=== PATIENT | female | born 1965 | race Caucasian/White ===

== ENCOUNTER → 2016-06-02 | Outpatient (CLI) | payer OTHER ==
--- NOTE | 2016-06-02 16:37 | MAMMOGRAPHY REPORT ---
BILATERAL DIGITAL SCREENING MAMMOGRAM TOMOSYNTHESIS WITH CAD: 06/02/2016 CLINICAL HISTORY: Routine screening. Patient has no complaints. TECHNIQUE: Breast tomosynthesis in addition to standard 2D mammography was performed. Current study was also evaluated with a Computer Aided Detection (CAD) system. COMPARISON: Comparison is made to exams dated: 12/17/2012 mammogram, 05/06/2011 mammogram, 05/06/2011 ultrasound, 04/24/2011 mammogram, 04/18/2010 mammogram, and 04/18/2010 ultrasound - [facility]. BREAST COMPOSITION: The tissue of both breasts is heterogeneously dense, which may obscure small ma sses. FINDINGS: There is an asymmetry in the medial right breast that appears very similar to the 011, 04/24/2011 and 12/17/2012 mammograms, suggesting benignity. There are a few stable benign-appe aring calcifications in the breasts. No suspicious mass, architectural distortion or cluster of new, suspicious microcalcifications is se en. IMPRESSION: ACR BI-RADS CATEGORY 2: BENIGN There is no mammographic evidence of malignancy. A 1 year screening mammogram is recommended. The p atient will receive written notification of the results. Approximately 10% of breast cancers are not detected with mammography. A negative mammographic repor t should not delay biopsy if a clinically suggestive mass is present. Destini Magana M.D. ay/:06/02/2016 16:31:11 Bulb Grower: Beulah Hagen, [facility] letter sent: Normal 1/2 BI-RADS Code: ACR BI-RADS Category 2: Benign
== END | disposition home or self-care (01) ==
LOC: C.MAMM 07:48
PROVIDERS: ATTEND Obstetrics & Gynecology
DX: Z12.31 Encounter for screening mammogram for malignant neoplasm of breast (principal)

== ENCOUNTER → 2016-08-08 | Outpatient (CLI) | payer OTHER | END | disposition home or self-care (01) | LOC: C.PAPS 07:47 | PROVIDERS: ATTEND Obstetrics & Gynecology | DX: Z01.411 Encounter for gynecological examination (general) (routine) with abnormal findings (principal); R87.610 Atypical squamous cells of undetermined significance on cytologic smear of cervix (ASC-US) ==

== ENCOUNTER → 2017-10-06 | Outpatient (CLI) | payer OTHER | END | disposition home or self-care (01) | LOC: C.PAPS 13:23 | PROVIDERS: ATTEND Obstetrics & Gynecology | DX: Z01.411 Encounter for gynecological examination (general) (routine) with abnormal findings (principal); R87.610 Atypical squamous cells of undetermined significance on cytologic smear of cervix (ASC-US) ==

== ENCOUNTER 2022-06-02 17:37 | Inpatient (IN) ==
--- NOTE | 2022-06-02 17:53 | ED Triage Note ---
Date of Service June 02, 2022 History of Present Illness This patient was briefly evaluated while in triage. An abbreviated physical exam was performed. This patient is a 56-year-old Female who presents to the ED for evaluation of 2 days of R flank pain, urinary symptoms, blood in urine, vomiting. Fever up to 101. No history of stones. Labs ordered through PCP today demonstrate WBC of 17, elevated creatinine 1.8. No URI symptoms. Physical Exam CONSTITUTIONAL: in no acute pain or distress, resting comfortably SKIN: pink, warm, dry CARDIAC: tachycardic rate and regular rhythm RESPIRATORY: in no respiratory distress, lungs clear to auscultation ABDOMEN: minimal R sided tenderness. R flank pain. Initial orders for labs and / or imaging were placed and patient was placed in the waiting area until a bed is available. Please see further documentation for the full ED course.
[2022-06-02] MEDS ORDERED: ONDANSETRON INJ 2 MG/ML 2 ML VIAL IV STA ×2 (18:15→22:46)
[2022-06-02] MEDS ORDERED: ONDANSETRON INJ 2 MG/ML 2 ML VIAL ONE (18:16)
[2022-06-02 18:36] LABS: Basophils # (auto) 0.03 K/uL (0-0.2); Basophils % (auto) 0.2 %; Eosinophils # (auto) 0.03 K/uL (0-0.50); Eosinophils % (auto) 0.2 %; Hematocrit (blood only) 39.4 % (37.0-47.0); Hemoglobin 13.1 g/dl (12.0-16.0); Immature Granulocytes % (auto) 0.5 %; Lymphocytes # (auto) 1.24 K/uL (1.2-3.4); Lymphocytes % (auto) 6.5 %; Mean Corpuscular Hemoglobin 27.4 pg (25.0-34.0); Mean Corpuscular Hgb Conc 33.2 g/dL (32.0-36.0); Mean Corpuscular Volume 82.4 fL (80.0-100.0); Mean Platelet Volume 10.5 fL (9.4-12.4); Monocytes # (auto) 0.92 K/uL (0.11-0.59); Monocytes % (auto) 4.8 %; Neutrophils # (auto) 16.67 K/uL (1.40-6.50); Neutrophils % (auto) 87.8 %; Platelet Count 241 K/uL (130-400); RDW Coefficient of Variation 14.5 % (11.5-14.5); RDW Standard Deviation 43.9 fL (36.4-46.3); Red Blood Count 4.78 M/uL (4.20-5.40); White Blood Count 18.99 K/ul (4.8-10.8)
[2022-06-02 18:50] LABS: Albumin Globulin Ratio 0.9 (0.9-2); BUN Creatinine Ratio 16.3 (10-20); Bilirubin,Total 0.9 mg/dl (0.2-1.0); Calcium 9.5 mg/dl (8.5-10.1); Est GFR (African American) 32.3 ml/min; Est GFR (Non-African American) 27.9 ml/min; Globulin 4.4 gm/dl (2.5-4.0); Potassium 3.4 mmol/L (3.5-5.1); Total Protein 8.4 gm/dl (6.0-8.3)
[2022-06-02] MEDS ORDERED: SODIUM CHLORIDE 0.9% 1000ML 1,000 ML IV ONE (20:00)
--- NOTE | 2022-06-02 20:56 | Emergency Department Note ---
History of Present Illness General Chief Complaint: Flank Pain Stated Complaint: VOMIT,NAUSEA,BLOOD IN URINE,FEVER,ABNORMAL LABS Time Seen by Provider: 06/02/22 19:48 History of Present Illness Provider Complaint: flank pain Onset (ago): 3 day(s) Pain Consistency: intermittent Location: R flank Radiation: RLQ Severity: moderate Quality: + stabbing, + aching, + sharp and + dull Relieved By: + nothing Exacerbated By: + nothing Context: + history of similar episodes (Recently placed on Augmentin); no foreign travel, no possible food poisoning, no sick contacts, no recent antibiotic use, no recent surgery/procedure or no recent injury Associated Symptoms: + nausea, + vomiting, + fever (Tmax 101), + chills, + dysuria and + hematuria; no hematemesis, no hematochezia, no melena, no headache, no chest pain and no breathing difficulty Home Medications Medication Instructions Recorded Confirmed Type hydrochlorothiazide 25 mg tablet 25 mg PO DAILY 04/23/20 11/23/20 History Allergies Allergy/AdvReac Type Severity Reaction Status Date / Time Sulfa (Sulfonamide Allergy Verified 11/23/20 09:58 Antibiotics) Past Med/Surg History Medical History Encounter for screening for malignant neoplasm of colon Encounter for screening for malignant neoplasm of rectum Hypertension Surgical History H/O wrist surgery Family History Mother Breast cancer Hypertension Father Hypertension Denies family history of Ovarian cancer Prostate cancer Myocardial infarction Colorectal cancer Social History Smoking Status: Never smoker Second Hand Exposure: Yes; Hx Alcohol Use: Yes Hx Substance Use: No Visual Impairment: No Limitations Hearing Ability: Normal Proposal Engineer Required: No Beliefs That Will Affect Care: None marital status: Current Living Situation: Spouse current occupational status: employed current occupation: Self Employeed How many Children do You have: 2 How many Children do You have Comment: 1 boy 1 girl Feels Safe at Home: Yes Childhood Exposure to Second-Hand Smoke: Yes during the past year weight has: remained stable Dental Care, Regularly: Yes Physical Activity Frequency: 5-6 Times per Week Seatbelt Use: always Sunscreen Use: Yes Physical Exam Vital Signs: Vital Signs - 24 hr 06/02/22 17:38 06/02/22 20:00 06/02/22 20:15 Temperature 36.8 C Temperature Source Temporal Artery Sc an Pulse Rate 114 H 113 H Pulse Rate from Sp O2 Sensor 113 H Respiratory Rate 20 22 Respiratory Effort / Characteristics Non-Labored Sponta neous Respiratory Depth Normal Blood Pressure 172/94 H Blood Pressure Era n 120 Pulse Oximetry 99 98 97 Oxygen Delivery Me thod Room Air Room Air Sepsis Recent Feve r Within 48 Hours No Sepsis New/Unexpla ined Change in Men ayan Status No Sepsis Action Take n by Nursing No Action Required 06/02/22 20:30 06/02/22 20:30 06/02/22 21:00 Temperature Temperature Source Pulse Rate 109 H 109 H Pulse Rate from Sp O2 Sensor 109 H Respiratory Rate 12 20 Respiratory Effort / Characteristics Respiratory Depth Blood Pressure 167/103 H Blood Pressure Era n 124 Pulse Oximetry 97 Oxygen Delivery Me thod Sepsis Recent Feve r Within 48 Hours Sepsis New/Unexpla ined Change in Men ayan Status Sepsis Action Take n by Nursing 06/02/22 21:30 06/02/22 21:30 06/02/22 22:00 Temperature Temperature Source Pulse Rate 107 H Pulse Rate from Sp O2 Sensor 108 H Respiratory Rate 14 Respiratory Effort / Characteristics Respiratory Depth Blood Pressure 163/102 H 175/106 H Blood Pressure Era n 122 129 Pulse Oximetry 97 Oxygen Delivery Me thod Sepsis Recent Feve r Within 48 Hours Sepsis New/Unexpla ined Change in Men ayan Status Sepsis Action Take n by Nursing 06/02/22 22:00 Temperature Temperature Source Pulse Rate 111 H Pulse Rate from Sp O2 Sensor 111 H Respiratory Rate 8 L Respiratory Effort / Characteristics Respiratory Depth Blood Pressure Blood Pressure Era n Pulse Oximetry 99 Oxygen Delivery Me thod Sepsis Recent Feve r Within 48 Hours Sepsis New/Unexpla ined Change in Men ayan Status Sepsis Action Take n by Nursing Physical Exam: Physical Exam GENERAL: She is oriented to person, place, and time. She appears well-developed and well-nourished. She does not appear distressed. HENT: Exam performed. -Head: Normocephalic and atraumatic. NECK: Normal range of motion. Neck supple. No JVD present.No tracheal deviation and normal range of motion present. CV: Tachycardic rate, regular rhythm, normal heart sounds and intact distal pul ses. There is no peripheral edema. Palpable radial pulses bue. PULM/CHEST: Effort normal and breath sounds normal. No respiratory distress. No stridor. She has no wheezes. She has no rales. ABD: The abdomen is soft. She has no distension. There is no tenderness. There is no rebound, no guarding, no Patrick's sign and no tenderness at McBurney's point. Rovsig negative. No CVA tenderness bilaterally. NEURO: She is alert and oriented to person, place, and time. She has normal strength. GCS eye subscore is 4. GCS verbal subscore is 5. GCS motor subscore is 6. SKIN: Skin is warm and dry. She is not diaphoretic. PSYCH: She has a normal mood and affect. Behavior is normal. Judgment and thought content normal. Course Course 1947: The patient was evaluated in room C5. A complete history and physical exam was performed Cardiac monitoring: An order was placed for continuous cardiac monitoring. The monitor shows a rate of 110 with sinus tachycardia rhythm interpreted by wa 2246: Vital signs stable. Labs today show a leukocytosis of 18.99. Lactic acid within normal limits. Patient's creatinine in the emergency department elevated 1.96. AST elevated 52 ALT 65 alkaline phosphatase 139. Urinalysis is concer sonya for UTI with 2+ bacteria. CT of the abdomen pelvis shows no kidney stones. Patient will be admitted for JOHANNY and UTI. Patient treated with Rocephin. Dr. Ross [facility] hospitalist is aware of the patient. Administered Medications Ceftriaxone Sodium 1,000 mg/ (Dextrose) 50 mls @ 100 mls/hr IV NOW STA Stop: 06/02/22 22:53 Last Admin: 06/02/22 22:41 Dose: 100 mls/hr Documented By: ALONZO Discontinued Medications Sodium Chloride (Nss 1000ml) 1,000 mls @ 999 mls/hr IV .Q1H1M ONE Stop: 06/02/22 21:00 Last Admin: 06/02/22 20:14 Dose: 999 mls/hr Documented By: ALONZO Ondansetron HCl (Ondansetron Inj 2 Mg/Ml 2 Ml Vial) 4 mg IV NOW STA Stop: 06/02/22 18:16 Last Admin: 06/02/22 18:19 Dose: 4 mg Documented By: NAILA Ondansetron HCl (Ondansetron Inj 2 Mg/Ml 2 Ml Vial) Confirm Administered Dose 4 mg .ROUTE .STK-MED ONE Stop: 06/02/22 18:17 Last Admin: 06/02/22 18:19 Dose: Not Given Documented By: NAILA Medical Decision Making Laboratory Data Attestation: I reviewed the patient's lab results. 06/02/22 18:18 06/02/22 18:18 Lab Results 06/02/22 06/02/22 06/02/22 Range/Units 18:18 18:18 18:18 WBC 18.99 H (4.8-10.8) K/ul RBC 4.78 (4.20-5.40) M/uL Hgb 13.1 (12.0-16.0) g/dl Hct 39.4 (37.0-47.0) % MCV 82.4 (80.0-100.0) fL MCH 27.4 (25.0-34.0) pg MCHC 33.2 (32.0-36.0) g/dL RDW Std Deviation 43.9 (36.4-46.3) fL RDW Coeff of Kelvin 14.5 (11.5-14.5) % Plt Count 241 (130-400) K/uL MPV 10.5 (9.4-12.4) fL Immature Gran % (Auto) 0.5 % Neut % (Auto) 87.8 % Lymph % (Auto) 6.5 % [place] % (Auto) 4.8 % Eos % (Auto) 0.2 % Baso % (Auto) 0.2 % Neut # (Auto) 16.67 H (1.40-6.50) K/uL Lymph # (Auto) 1.24 (1.2-3.4) K/uL [place] # (Auto) 0.92 H (0.11-0.59) K/uL Eos # (Auto) 0.03 (0-0.50) K/uL Baso # (Auto) 0.03 (0-0.2) K/uL Immature Gran # (Auto) 0.10 (0.01-0.20) K/uL Sodium 135 L (136-145) mmol/L Potassium 3.4 L (3.5-5.1) mmol/L Chloride 98 (98-107) mmol/L Carbon Dioxide 26 (21-32) mmol/L Anion Gap 11 (3-11) BUN 32 H (6-23) mg/dl Creatinine 1.96 H (0.6-1.2) mg/dl Est Cr Clr Drug Dosing 33.0 ml/min Est GFR ( Amer) 32.3 ml/min Est GFR (Non-Af Amer) 27.9 ml/min BUN/Creatinine Ratio 16.3 (10-20) Glucose 117 H (70-99(Fasting)) mg/dl Lactate 1.2 (0.4-2.0) mmol/L Calcium 9.5 (8.5-10.1) mg/dl Total Bilirubin 0.9 (0.2-1.0) mg/dl AST 52 H (13-39) U/L ALT 65 H (7-52) U/L Alkaline Phosphatase 139 H (34-104) U/L Total Protein 8.4 H (6.0-8.3) gm/dl Albumin 4.0 (3.4-5.0) gm/dl Globulin 4.4 H (2.5-4.0) gm/dl Albumin/Globulin Ratio 0.9 (0.9-2) Lipase 19 (11-82) U/L Urine Color Urine Appearance (Clear) Urine pH (4.5-7.5) Ur Specific Joaquin (1.000-1.030) Urine Protein (Negative) Urine Glucose (UA) (Negative) Urine Ketones (Negative) Urine Blood (Negative) Urine Nitrite (Negative) Urine Bilirubin (Negative) Urine Urobilinogen (Negative) Ur Leukocyte Esterase (Negative) Urine RBC (0-4) /hpf Urine WBC (0-5) /hpf Ur Epithelial Cells (0-5) /lpf Urine Bacteria (Negative) 06/02/22 Range/Units 21:09 WBC (4.8-10.8) K/ul RBC (4.20-5.40) M/uL Hgb (12.0-16.0) g/dl Hct (37.0-47.0) % MCV (80.0-100.0) fL MCH (25.0-34.0) pg MCHC (32.0-36.0) g/dL RDW Std Deviation (36.4-46.3) fL RDW Coeff of Kelvin (11.5-14.5) % Plt Count (130-400) K/uL MPV (9.4-12.4) fL Immature Gran % (Auto) % Neut % (Auto) % Lymph % (Auto) % [place] % (Auto) % Eos % (Auto) % Baso % (Auto) % Neut # (Auto) (1.40-6.50) K/uL Lymph # (Auto) (1.2-3.4) K/uL [place] # (Auto) (0.11-0.59) K/uL Eos # (Auto) (0-0.50) K/uL Baso # (Auto) (0-0.2) K/uL Immature Gran # (Auto) (0.01-0.20) K/uL Sodium (136-145) mmol/L Potassium (3.5-5.1) mmol/L Chloride (98-107) mmol/L Carbon Dioxide (21-32) mmol/L Anion Gap (3-11) BUN (6-23) mg/dl Creatinine (0.6-1.2) mg/dl Est Cr Clr Drug Dosing ml/min Est GFR ( Amer) ml/min Est GFR (Non-Af Amer) ml/min BUN/Creatinine Ratio (10-20) Glucose (70-99(Fasting)) mg/dl Lactate (0.4-2.0) mmol/L Calcium (8.5-10.1) mg/dl Total Bilirubin (0.2-1.0) mg/dl AST (13-39) U/L ALT (7-52) U/L Alkaline Phosphatase (34-104) U/L Total Protein (6.0-8.3) gm/dl Albumin (3.4-5.0) gm/dl Globulin (2.5-4.0) gm/dl Albumin/Globulin Ratio (0.9-2) Lipase (11-82) U/L Urine Color Agnes Urine Appearance Cloudy A (Clear) Urine pH (4.5-7.5) Ur Specific Joaquin 1.013 (1.000-1.030) Urine Protein (Negative) Urine Glucose (UA) (Negative) Urine Ketones (Negative) Urine Blood (Negative) Urine Nitrite (Negative) Urine Bilirubin (Negative) Urine Urobilinogen (Negative) Ur Leukocyte Esterase (Negative) Urine RBC >30 H (0-4) /hpf Urine WBC >30 H (0-5) /hpf Ur Epithelial Cells 10-20 H (0-5) /lpf Urine Bacteria 2+ H (Negative) Imaging Data Attestation: I personally reviewed and interpreted this imaging study as follows: My Impression: CT abdomen pelvis: No kidney stone Radiologist's Impression: Abdomen/Pelvis CT 06/02/22 18:00 Exam(s): CT ABDOMEN + PELVIS Without Contrast EXAM: CT Abdomen and Pelvis Without Intravenous Contrast CLINICAL HISTORY: Reason for exam: R flank pain, urinary sx's, fever, elevated Cr.. TECHNIQUE: Axial computed tomography images of the abdomen and pelvis without intravenous contrast. CTDI is 6.04 mGy and DLP is 323.65 mGy-cm. Automated exposure control was utilized for the study. A dose lowering technique was utilized adhering to the principles of ALARA. COMPARISON: No relevant prior studies available. FINDINGS: Lung bases: Unremarkable. No mass. No consolidation. ABDOMEN: Liver: There is mild fatty infiltration of the liver. Gallbladder and bile ducts: There is 4 mm gallstone. No ductal dilation. Pancreas: Unremarkable. No ductal dilation. Spleen: Unremarkable. No splenomegaly. Adrenals: Unremarkable. No mass. Kidneys and ureters: There is 1.7 cm hemorrhagic exophytic left renal cortical cyst. This can be confirmed on ultrasound study. No obstructing stones. No hydronephrosis. There is 1.5 cm left renal cortical cyst. Stomach and bowel: Unremarkable. No obstruction. No mucosal thickening. PELVIS: Appendix: No findings to suggest acute appendicitis. Bladder: Unremarkable. No stones. Reproductive: Unremarkable as visualized. ABDOMEN and PELVIS: Intraperitoneal space: Unremarkable. No free air. No significant fluid collection. Bones/joints: No acute fracture. No dislocation. Mild L5/S1 degenerative disc disease with disc space narrowing. T12 vertebral body sclerotic bone island is seen. Soft tissues: No there is small omental fat-containing umbilical hernia. Vasculature: Unremarkable. No abdominal aortic aneurysm. Lymph nodes: Unremarkable. No enlarged lymph nodes. IMPRESSION: No evidence of hydronephrosis or nephrolithiasis Electronically signed by: Davidson Ledesma MD 06/02/22 22:44 PM [facility] Narrative 1948: The patient was evaluated in room C5. A complete history and physical exam was performed Cardiac monitoring: An order was placed for continuous cardiac monitoring. The monitor shows a rate of 110 with sinus tachycardia rhythm interpreted by me 2246: Vital signs stable. Labs today show a leukocytosis of 18.99. Lactic acid within normal limits. Patient's creatinine in the emergency department elevated 1.96. AST elevated 52 ALT 65 alkaline phosphatase 139. Urinalysis is concerning for UTI with 2+ bacteria. CT of the abdomen pelvis shows no kidney stones. Patient will be admitted for JOHANNY and UTI. Patient treated with Rocephin. Dr. Ross [facility] hospitalist is aware of the patient. Impression & Plan JOHANNY (acute kidney injury), UTI (urinary tract infection) Discharge Plan Visit Data Chief Complaint: Flank Pain Stated Complaint: VOMIT,NAUSEA,BLOOD IN URINE,FEVER,ABNORMAL LABS ED Provider: Melquiades Garrido Discharge Problem: JOHANNY (acute kidney injury), UTI (urinary tract infection) Patient Disposition: Admitted As Inpatient Forms Stand Alone Forms: [facility] Prescriptions Prescriptions: No Action hydrochlorothiazide 25 mg tablet 25 mg PO DAILY Referrals Referrals: Jacques Arce MD [Primary Care Provider] -
[2022-06-02 22:14] LABS: Appearance Urine Cloudy (Clear); Color Urine Amber; Specific Gravity Urine 1.013 (1.000-1.030)
[2022-06-02 22:19] LABS: RBC Urine >30 /hpf (0-4); WBC Urine >30 /hpf (0-5)
[2022-06-02 22:20] LABS: Bacteria Urine 2+ (Negative)
[2022-06-02] MEDS ORDERED: cefTRIAXone SODIUM 1,000 MG in DEXTROSE 5% AD-VAN 50 ML IV STA (22:24)
--- NOTE | 2022-06-02 22:45 | CT Scan Report ---
Exam(s): CT ABDOMEN + PELVIS Without Contrast EXAM: CT Abdomen and Pelvis Without Intravenous Contrast CLINICAL HISTORY: Reason for exam: R flank pain, urinary sx's, fever, elevated Cr.. TECHNIQUE: Axial computed tomography images of the abdomen and pelvis without intravenous contrast. CTDI is 6.04 mGy and DLP is 323.65 mGy-cm. Automated exposure control was utilized for the study. A dose lowering technique was utilized adhering to the principles of ALARA. COMPARISON: No relevant prior studies available. FINDINGS: Lung bases: Unremarkable. No mass. No consolidation. ABDOMEN: Liver: There is mild fatty infiltration of the liver. Gallbladder and bile ducts: There is 4 mm gallstone. No ductal dilation. Pancreas: Unremarkable. No ductal dilation. Spleen: Unremarkable. No splenomegaly. Adrenals: Unremarkable. No mass. Kidneys and ureters: There is 1.7 cm hemorrhagic exophytic left renal cortical cyst. This can be confirmed on ultrasound study. No obstructing stones. No hydronephrosis. There is 1.5 cm left renal cortical cyst. Stomach and bowel: Unremarkable. No obstruction. No mucosal thickening. PELVIS: Appendix: No findings to suggest acute appendicitis. Bladder: Unremarkable. No stones. Reproductive: Unremarkable as visualized. ABDOMEN and PELVIS: Intraperitoneal space: Unremarkable. No free air. No significant fluid collection. Bones/joints: No acute fracture. No dislocation. Mild L5/S1 degenerative disc disease with disc space narrowing. T12 vertebral body sclerotic bone island is seen. Soft tissues: No there is small omental fat-containing umbilical hernia. Vasculature: Unremarkable. No abdominal aortic aneurysm. Lymph nodes: Unremarkable. No enlarged lymph nodes. IMPRESSION: No evidence of hydronephrosis or nephrolithiasis Electronically signed by: Davidson Ledesma MD 06/02/22 22:44 PM
--- NOTE | 2022-06-02 22:53 | History & Physical Report ---
Date of Service June 02, 2022 Assessment & Plan (1) JOHANNY (acute kidney injury): Plan: 56yo female with history of well controlled hypertension on HCTZ therapy presenting with three days of right flank pain, nausea/vomiting, dysuria and hematuria. Patient with elevated BUN of 32 and Cr of 1.96 from baseline of 18 and 0.97 in April 2020. No prior renal issues. Patient reports poor oral intake over the last several days. She has also been taking a modest amount of Advil. She did not take her HCTZ today. Renal ultrasound performed earlier today 06/02/22 with renal cysts, otherwise no evidence of stones or hydronephrosis. CT of the abdomen largely unremarkable as well. Suspect JOHANNY is multifactorial - pre-renal in in setting of decreased oral intake as well as presence of urinary tract infection. Use of advil possibly contributing as well. Potassium is slightly low at 3.4. Electrolytes otherwise acceptable. -Admit to medical -Check urine Na and Urea -Check CK with AM labs -IVF with Normosol at 125mL/hr x 2 liters -Monitor urine output -BMP in AM -Avoid nephrotoxic agents -Renal dosing where indicated (2) UTI (urinary tract infection): Plan: UA with 2+ bacteria, >30 WBC and RBC. Most likely cause of hematuria. -Follow urine culture sent from ER -Continue Ceftriaxone 1gm IV daily -Consider Urology evaluation if persistent or worsening -Tylenol PRN pain or fever -Zofran PRN nausea -Oxycodone PRN severe pain (3) Hypertension: Plan: Blood pressure elevated in the ER. Patient reports BP is well controlled at home. She is compliant with her HCTZ -Continue to monitor -Hold HCTZ for now (4) Elevated LFTs: Plan: Mild elevation of LFT - AST=52, ALT=65, XX=255. No prior hepatic issues. CT of the abdomen notes mild fatty infiltration. -Repeat LFTs in AM. F/E/N - Normosol at 125mL/hr x 2 liters, repeat chemistry in AM, Regular diet as tolerated Ppx - Low risk for DVT, encourage ambulation as tolerated Code -Full per discussion with patient Dispo - Admit to medical History of Present Illness Chief Complaint: right flank pain, hematuria Primary Care Provider: Jacques Arce MD Mrs. Escobar is a pleasant 56yo female with history of well controlled HTN presenting with two days of right flank pain and nausea. On the evening of 05/31/22 patient developed some discomfort in her right flank. She took some Advil with some relief. Shortly after she developed fever and shaking chills as well as nausea and vomiting as well as worsening pain. She continued to have flank pain, nausea and vomiting as well as decreased oral intake and dysuria. On 06/01/22 she noted some hematuria. She had a renal ultrasound performed this morning 06/02/22 which revealed no hydronephrosis or mass lesion. She did have a few renal cysts. She also had bloodwork performed which showed elevation of BUN and Cr from baseline (BUN=31 and Cr=1.85 from 18 and 0.97, respectively in 04/2020). In the ER she is afebrile, tachycardic at 111bpm and hypertensive at 175/106. Patient presently with no additional complaints. She continues to have right flank pain mostly with movement, minimal discomfort 1-04/25. Nausea improved with Zofran. Specifically denies chest pain, palpitations, cough, SOB, diarrhea. ER Course: Ceftriaxone 1gm IV Zofran 4mg IV NSS x 1L Allergies Allergy/AdvReac Type Severity Reaction Status Date / Time Sulfa (Sulfonamide Allergy Unknown Verified 06/02/22 23:19 Antibiotics) Home Medications Medication Instructions Recorded Confirmed Type hydrochlorothiazide 25 mg tablet 25 mg PO DAILY PRN SBP > 130 04/23/20 06/02/22 History multivitamin 1 tab PO DAILY 06/02/22 06/02/22 History Past Med/Surg History Medical History (Updated 06/02/22 @ 23:33 by Peggy Ross DO) Hypertension Surgical History (Updated 06/02/22 @ 23:19 by Peggy Ross DO) H/O wrist surgery Removal of ganglion cyst Family History Mother Breast cancer Hypertension Father Hypertension Denies family history of Ovarian cancer Prostate cancer Myocardial infarction Colorectal cancer Social History Smoking Status: Never smoker Second Hand Exposure: Yes; Hx Alcohol Use: Yes Hx Substance Use: No Visual Impairment: No Limitations Hearing Ability: Normal Baker Test Required: No Beliefs That Will Affect Care: None marital status: Current Living Situation: Spouse current occupational status: employed current occupation: Self Employeed How many Children do You have: 2 How many Children do You have Comment: 1 boy 1 girl Feels Safe at Home: Yes Childhood Exposure to Second-Hand Smoke: Yes during the past year weight has: remained stable Dental Care, Regularly: Yes Physical Activity Frequency: 5-6 Times per Week Seatbelt Use: always Sunscreen Use: Yes Review of Systems Review of Systems: All systems reviewed & are unremarkable except as noted in HPI & below Physical Exam Physical Exam: General: patient resting comfortably, NAD, non-toxic in appearance, AA&O x 4 Skin: warm, dry, intact, no rashes or lesions HEENT: NC/AT, PERRL, EOMI, anicteric sclera, conjunctiva without injection, external ear normal to inspection and nontender, nares patent, moist mucus membranes, dentition intact, no oropharyngeal lesions, neck supple, trachea midline, no LAD, no thyromegaly, no JVD Heart: +S1/S2, regular, no m/r/g Lungs: equal air entry bilaterally, no rales/rhonchi/wheezes Abd: +BS, soft, NT/ND, no masses/organomegaly/ascites Ext: warm, 2+ pulses in UE/LE bilaterally, no clubbing/cyanosis or edema Neuro: nonfocal, patient AA&O x 4, speech intact, no facial droop, moving all extremities on command with equal strength 5/5 Results & Data Results & Data Vital Signs (Past 12 Hours) Vital Signs Temp Pulse Resp BP Pulse Ox O2 Del Method 06/02/22 22:00 111 H 8 L 99 06/02/22 22:00 175/106 H 06/02/22 21:30 107 H 14 97 06/02/22 21:30 163/102 H 06/02/22 21:00 109 H 20 06/02/22 20:30 109 H 12 97 06/02/22 20:30 167/103 H 06/02/22 20:15 113 H 22 97 06/02/22 20:00 98 Room Air 06/02/22 17:38 36.8 C 114 H 20 172/94 H 99 Room Air Laboratory Results Laboratory Results WBC 18.99 K/ul (4.8-10.8) H 06/02/22 18:18 RBC 4.78 M/uL (4.20-5.40) 06/02/22 18:18 Hgb 13.1 g/dl (12.0-16.0) 06/02/22 18:18 Hct 39.4 % (37.0-47.0) 06/02/22 18:18 MCV 82.4 fL (80.0-100.0) 06/02/22 18:18 MCH 27.4 pg (25.0-34.0) 06/02/22 18:18 MCHC 33.2 g/dL (32.0-36.0) 06/02/22 18:18 RDW Std Deviation 43.9 fL (36.4-46.3) 06/02/22 18:18 RDW Coeff of Kelvin 14.5 % (11.5-14.5) 06/02/22 18:18 Plt Count 241 K/uL (130-400) 06/02/22 18:18 MPV 10.5 fL (9.4-12.4) 06/02/22 18:18 Immature Gran % (Auto) 0.5 % 06/02/22 18:18 Neut % (Auto) 87.8 % 06/02/22 18:18 Lymph % (Auto) 6.5 % 06/02/22 18:18 [place] % (Auto) 4.8 % 06/02/22 18:18 Eos % (Auto) 0.2 % 06/02/22 18:18 Baso % (Auto) 0.2 % 06/02/22 18:18 Neut # (Auto) 16.67 K/uL (1.40-6.50) H 06/02/22 18:18 Lymph # (Auto) 1.24 K/uL (1.2-3.4) 06/02/22 18:18 [place] # (Auto) 0.92 K/uL (0.11-0.59) H 06/02/22 18:18 Eos # (Auto) 0.03 K/uL (0-0.50) 06/02/22 18:18 Baso # (Auto) 0.03 K/uL (0-0.2) 06/02/22 18:18 Immature Gran # (Auto) 0.10 K/uL (0.01-0.20) 06/02/22 18:18 Sodium 135 mmol/L (136-145) L 06/02/22 18:18 Potassium 3.4 mmol/L (3.5-5.1) L 06/02/22 18:18 Chloride 98 mmol/L (98-107) 06/02/22 18:18 Carbon Dioxide 26 mmol/L (21-32) 06/02/22 18:18 Anion Gap 11 (3-11) 06/02/22 18:18 BUN 32 mg/dl (6-23) H 06/02/22 18:18 Creatinine 1.96 mg/dl (0.6-1.2) H 06/02/22 18:18 Est Cr Clr Drug Dosing 33.0 ml/min 06/02/22 18:18 Est GFR ( Amer) 32.3 ml/min 06/02/22 18:18 Est GFR (Non-Af Amer) 27.9 ml/min 06/02/22 18:18 BUN/Creatinine Ratio 16.3 (10-20) 06/02/22 18:18 Glucose 117 mg/dl (70-99(Fasting)) H 06/02/22 18:18 Lactate 1.2 mmol/L (0.4-2.0) 06/02/22 18:18 Calcium 9.5 mg/dl (8.5-10.1) 06/02/22 18:18 Total Bilirubin 0.9 mg/dl (0.2-1.0) 06/02/22 18:18 AST 52 U/L (13-39) H 06/02/22 18:18 ALT 65 U/L (7-52) H 06/02/22 18:18 Alkaline Phosphatase 139 U/L (34-104) H 06/02/22 18:18 Total Protein 8.4 gm/dl (6.0-8.3) H 06/02/22 18:18 Albumin 4.0 gm/dl (3.4-5.0) 06/02/22 18:18 Globulin 4.4 gm/dl (2.5-4.0) H 06/02/22 18:18 Albumin/Globulin Ratio 0.9 (0.9-2) 06/02/22 18:18 Lipase 19 U/L (11-82) 06/02/22 18:18 Urine Color Agnes 06/02/22 21:09 Urine Appearance Cloudy (Clear) A 06/02/22 21:09 Urine pH (4.5-7.5) 06/02/22 21:09 Ur Specific [place] 1.013 (1.000-1.030) 06/02/22 21:09 Urine Protein (Negative) 06/02/22 21:09 Urine Glucose (UA) (Negative) 06/02/22 21:09 Urine Ketones (Negative) 06/02/22 21:09 Urine Blood (Negative) 06/02/22 21:09 Urine Nitrite (Negative) 06/02/22 21:09 Urine Bilirubin (Negative) 06/02/22 21:09 Urine Urobilinogen (Negative) 06/02/22 21:09 Ur Leukocyte Esterase (Negative) 06/02/22 21:09 Urine RBC >30 /hpf (0-4) H 06/02/22 21:09 Urine WBC >30 /hpf (0-5) H 06/02/22 21:09 Ur Epithelial Cells 10-20 /lpf (0-5) H 06/02/22 21:09 Urine Bacteria 2+ (Negative) H 06/02/22 21:09 SARS-CoV-2, RNA, NAAT NEGATIVE (NEGATIVE) 06/02/22 22:42 Impressions Abdomen/Pelvis CT 06/02/22 18:00 Exam(s): CT ABDOMEN + PELVIS Without Contrast EXAM: CT Abdomen and Pelvis Without Intravenous Contrast CLINICAL HISTORY: Reason for exam: R flank pain, urinary sx's, fever, elevated Cr.. TECHNIQUE: Axial computed tomography images of the abdomen and pelvis without intravenous contrast. CTDI is 6.04 mGy and DLP is 323.65 mGy-cm. Automated exposure control was utilized for the study. A dose lowering technique was utilized adhering to the principles of ALARA. COMPARISON: No relevant prior studies available. FINDINGS: Lung bases: Unremarkable. No mass. No consolidation. ABDOMEN: Liver: There is mild fatty infiltration of the liver. Gallbladder and bile ducts: There is 4 mm gallstone. No ductal dilation. Pancreas: Unremarkable. No ductal dilation. Spleen: Unremarkable. No splenomegaly. Adrenals: Unremarkable. No mass. Kidneys and ureters: There is 1.7 cm hemorrhagic exophytic left renal cortical cyst. This can be confirmed on ultrasound study. No obstructing stones. No hydronephrosis. There is 1.5 cm left renal cortical cyst. Stomach and bowel: Unremarkable. No obstruction. No mucosal thickening. PELVIS: Appendix: No findings to suggest acute appendicitis. Bladder: Unremarkable. No stones. Reproductive: Unremarkable as visualized. ABDOMEN and PELVIS: Intraperitoneal space: Unremarkable. No free air. No significant fluid collection. Bones/joints: No acute fracture. No dislocation. Mild L5/S1 degenerative disc disease with disc space narrowing. T12 vertebral body sclerotic bone island is seen. Soft tissues: No there is small omental fat-containing umbilical hernia. Vasculature: Unremarkable. No abdominal aortic aneurysm. Lymph nodes: Unremarkable. No enlarged lymph nodes. IMPRESSION: No evidence of hydronephrosis or nephrolithiasis Electronically signed by: Davidson Ledesma MD 06/02/22 22:44 PM PG Care Time/CCT Total # of Minutes Spent Total Time Spent with Patient: Total time spent is greater than 50% in coordination of care (as documented) at patient's floor/unit and/or counseling patient: Coding Level of Care Code 44031 INT INP/OBS CARE 2/55MIN Diagnoses JOHANNY (acute kidney injury) N17.9 UTI (urinary tract infection) N39.0; R31.9 Hematuria presence: with hematuria Urinary tract infection type: site unspecified Hypertension I10 Elevated LFTs R79.89 (2) UTI (urinary tract infection) Hematuria presence: with hematuria Urinary tract infection type: site unspecified Qualified Code(s): N39.0 - Urinary tract infection, site not specified; R31.9 - Hematuria, unspecified
[2022-06-03] MEDS ORDERED: oxyCODONE HCL IR 5 MG TAB (IMMEDIATE RELEASE) PO PRN (01:15)
[2022-06-03] MEDS ORDERED: POLYETHYLENE (MIRALAX) 17 GM PACK PO PRN (01:15)
[2022-06-03] MEDS ORDERED: ACETAMINOPHEN 325 MG TAB PO PRN (01:15)
[2022-06-03] MEDS: NORMOSOL-R 1,000 ML IV SCH ×2 (01:46→09:24)
[2022-06-03] MEDS: ONDANSETRON INJ 2 MG/ML 2 ML VIAL IV PRN ×2 (03:18→09:05)
[2022-06-03 06:43] LABS: Hematocrit (blood only) 32.8 % (37.0-47.0); Hemoglobin 10.6 g/dl (12.0-16.0); Mean Corpuscular Hemoglobin 27.1 pg (25.0-34.0); Mean Corpuscular Hgb Conc 32.3 g/dL (32.0-36.0); Mean Corpuscular Volume 83.9 fL (80.0-100.0); Mean Platelet Volume 10.4 fL (9.4-12.4); Platelet Count 195 K/uL (130-400); RDW Coefficient of Variation 14.6 % (11.5-14.5); RDW Standard Deviation 45.1 fL (36.4-46.3); Red Blood Count 3.91 M/uL (4.20-5.40); White Blood Count 14.97 K/ul (4.8-10.8)
[2022-06-03 06:52] LABS: Albumin Level 3.1 gm/dl (3.4-5.0); BUN Creatinine Ratio 14.5 (10-20); Bilirubin Direct 0.2 mg/dl (0-0.2); Bilirubin,Total 0.5 mg/dl (0.2-1.0); Calcium 8.2 mg/dl (8.5-10.1); Creatinine Clr Calc Pharmacy 29.4 ml/min; Est GFR (African American) 28.1 ml/min; Est GFR (Non-African American) 24.3 ml/min; Potassium 3.5 mmol/L (3.5-5.1); Total Protein 6.3 gm/dl (6.0-8.3)
--- NOTE | 2022-06-03 07:34 | Hospitalist Progress Note ---
Date of Service June 03, 2022 Assessment & Plan (1) JOHANNY (acute kidney injury): Plan: acute kidney injury , moderate risk, no evidence of obstruction seen on imaging, risk factors of HTN No prior renal issues. Patient reports poor oral intake over the last several days. She has also been taking a modest amount of Advil. She did not take her HCTZ on the day of admission Renal ultrasound performed as an outpt on 06/02/22 with renal cysts, otherwise no evidence of stones or hydronephrosis. CT of the abdomen largely unremarkable as well. Suspect JOHANNY is multifactorial - pre-renal in in setting of decreased oral intake as well as presence of urinary tract infection. Use of advil possibly contributing as well. -IVF with Normosol at 125mL/hr x 2 liters, remains on 80 ml hour -Avoid nephrotoxic agents - (2) UTI (urinary tract infection): Plan: acute uti poa, moderate risk , UA with 2+ bacteria, >30 WBC and RBC. Most likely cause of hematuria. -pending culture results -Continue Ceftriaxone 1gm IV daily pain and nausea control (3) Hypertension: Plan: chronic and unstable, Blood pressure elevated in the ER. if needed will use renal favorable meds consider amlodipine (4) Elevated LFTs: Plan: unkown if acute or chronic, Mild elevation of LFT - AST=52, ALT=65, MZ=354. No prior hepatic issues. CT of the abdomen notes mild fatty infiltration. F/E/N - Normosol at 125mL/hr x 2 liters, repeat chemistry in AM, Regular diet as tolerated Ppx - Low risk for DVT, encourage ambulation as tolerated Code -Full per discussion with patient Admission and Anticipated Discharge Date Admission Date: June 02, 2022 Subjective pt still with some nausea , no focal abdominal pain, hematuria and dysuria resolved Physical Exam Physical Exam: Patient awake and oriented does not have any peripheral edema card exam is regular lungs are clear abdomen NABS soft nontender distended Results & Data Results & Data Vital Signs (Past 12 Hours) Vital Signs Temp Pulse Pulse Resp BP BP Pulse Ox 06/03/22 02:00 99.1 F 98 H 16 158/97 H 96 06/02/22 20:15 110 H 06/02/22 22:00 111 H 8 L 99 06/02/22 22:00 175/106 H 06/02/22 21:30 107 H 14 97 06/02/22 21:30 163/102 H 06/02/22 21:00 109 H 20 06/02/22 20:30 109 H 12 97 06/02/22 20:30 167/103 H 06/02/22 20:15 113 H 22 97 06/02/22 20:00 98 O2 Del Method 06/03/22 02:00 Room Air 06/02/22 20:15 06/02/22 22:00 06/02/22 22:00 06/02/22 21:30 06/02/22 21:30 06/02/22 21:00 06/02/22 20:30 06/02/22 20:30 06/02/22 20:15 06/02/22 20:00 Room Air PG Care Time/CCT Total # of Minutes Spent Total Time Spent with Patient: Total time spent is greater than 50% in coordination of care (as documented) at patient's floor/unit and/or counseling patient: Coding Level of Care Code 45703 SUB INP/OBS CARE MIN Diagnoses JOHANNY (acute kidney injury) N17.9 UTI (urinary tract infection) N39.0; R31.9 Hematuria presence: with hematuria Urinary tract infection type: site unspecified Hypertension I10 Elevated LFTs R79.89 (2) UTI (urinary tract infection) Hematuria presence: with hematuria Urinary tract infection type: site unspecified Qualified Code(s): N39.0 - Urinary tract infection, site not specified; R31.9 - Hematuria, unspecified
[2022-06-03] MEDS: PROMETHAZINE HCL 12.5 MG in SODIUM CHLORIDE 0.9% 50 ML IV PRN ×2 (14:25→23:15)
[2022-06-03] MEDS ORDERED: cefTRIAXone SODIUM 2,000 MG in DEXTROSE 5% 50 ML IV SCH (22:00)
[2022-06-03] MEDS ORDERED: cefTRIAXone SODIUM 1,000 MG in DEXTROSE 5% AD-VAN 50 ML IV SCH (22:00)
[2022-06-04 09:47] LABS: Urea Nitrogen, Random Urine 436 mg/dL
[2022-06-04 10:40] LABS: BUN Creatinine Ratio 10.3 (10-20); Calcium 8.8 mg/dl (8.6-10.3); Creatinine Clr Calc Pharmacy 20.8 ml/min; Est GFR (African American) 18.5 ml/min
[2022-06-04] MEDS ORDERED: POTASSIUM CHLORIDE CRTAB 20 MEQ TABCR PO STA (11:16)
[2022-06-04] MEDS: NORMOSOL-R 1,000 ML IV SCH (11:43)
[2022-06-04 13:45] LABS: Appearance Urine Cloudy (Clear); Bacteria Urine Automated Negative (Negative); Bilirubin Urine Negative (Negative); Blood Urine 3+ (Negative); Color Urine Red; Epithelial Cell Urine Auto >30 /lpf (0-5); Glucose Urine UA Negative (Negative); Ketones Urine Negative (Negative); Leukocyte Esterase Urine 1+ (Negative); Nitrite Urine Negative (Negative); Protein Urine 3+ (Negative); RBC Urine Automated >30 /hpf (0-4); Specific Gravity Urine 1.012 (1.000-1.030); Urobilinogen Urine Negative (Negative)
[2022-06-04] MEDS ORDERED: hydrALAZINE HCL 20 MG/ML VIAL IV PRN (14:08)
--- NOTE | 2022-06-04 14:17 | Hospitalist Progress Note ---
Date of Service June 04, 2022 Assessment & Plan (1) JOHANNY (acute kidney injury): Plan: acute kidney injury , moderate risk, no evidence of obstruction seen on imaging, risk factors of HTN use nonsteroidals possible concurrent infection, Covid infection 05/08 No prior renal issues. Patient reports poor oral intake over the last several days prior to admission. She has also been taking a modest amount of Advil. She typically takes hydrochlorothiazide for blood pressure control Renal ultrasound performed as an outpt on 06/02/22 with renal cysts, otherwise no evidence of stones or hydronephrosis. CT of the abdomen largely unremarkable as well. Suspect JOHANNY is multifactorial - pre-renal in in setting of decreased oral intake as well as presence of urinary tract infection. Use of advil possibly contributing as well. unclear if influenced by Covid infection in Februrary -Patient Repeat urine analysis shows, 3+ protein, 3+ blood, leukocyte esterase and hyaline cast. Patient has low-grade temperature. Initial urine culture was unremarkable pending urine culture from 06/04/2022. Patient is completed 3 days of ceftriaxone will change antibiotics in case we are missing something although her initial culture was negative. We will use Unasyn at this time after conversation with antimicrobial stewardship pharmacist. Lyme disease pending , tic smear is negative at this time - (2) UTI (urinary tract infection): Plan: Initial urine culture was unremarkable. Repeat urine analysis is abnormal with some markers consistent with a possible urinary infection although negative nitrate negative but leukocyte esterase and blood positive. Will transition to Unasyn at this time Repeat urine cultures pending (3) Hypertension: Plan: chronic and unstable, Blood pressure elevated in the ER. Amlodipine can be used if blood pressure control control is required (4) Elevated LFTs: Plan: Code -Full per discussion with patient Admission and Anticipated Discharge Date Admission Date: June 02, 2022 Subjective pt still with improved eating well no focal abdominal pain, hematuria and dysuria improved Physical Exam Physical Exam: Alert appropriate. No peripheral edema. Cardiac exam is regular without murmurs lungs are clear abdomen NABS soft and nontender Results & Data Results & Data Vital Signs (Past 12 Hours) Vital Signs Temp Pulse Resp BP Pulse Ox O2 Del Method 06/04/22 07:43 99.7 F H 94 H 17 162/94 H 98 Room Air Laboratory Results Reviewed chemistry panel Reviewed repeat urine analysis PG Care Time/CCT Total # of Minutes Spent Total Time Spent with Patient: Total time spent is greater than 50% in coordination of care (as documented) at patient's floor/unit and/or counseling patient: Coding Level of Care Code 19494 SUB INP/OBS CARE MIN Diagnoses JOAHNNY (acute kidney injury) N17.9 UTI (urinary tract infection) N39.0; R31.9 Hematuria presence: with hematuria Urinary tract infection type: site unspecified Hypertension I10 Elevated LFTs R79.89 (2) UTI (urinary tract infection) Hematuria presence: with hematuria Urinary tract infection type: site unspecified Qualified Code(s): N39.0 - Urinary tract infection, site not specified; R31.9 - Hematuria, unspecified
[2022-06-04] MEDS: AMPICILLIN/SULBACTAM SOD 3,000 MG in 0.9 % SODIUM CHLORIDE 100 ML IV SCH (14:42)
[2022-06-04 17:18] LABS: BUN Creatinine Ratio 10.5 (10-20); Calcium 8.6 mg/dl (8.6-10.3); Creatinine Clr Calc Pharmacy 21.9 ml/min; Est GFR (African American) 19.7 ml/min; Potassium 3.3 mmol/L (3.5-5.1)
[2022-06-04] MEDS ORDERED: amLODIPine BESYLATE 5 MG TAB PO ONE (18:30)
[2022-06-04] MEDS: PROMETHAZINE HCL 12.5 MG in SODIUM CHLORIDE 0.9% 50 ML IV PRN (21:45)
[2022-06-05 00:22] LABS: Total Protein Urine Random 195.1 mg/dl (0-11.9)
[2022-06-05 00:28] LABS: Creatinine Urine Random 26.2 mg/dl; Protein Creatinine Ratio Urine 7.4 (0-0.2)
[2022-06-05] MEDS: NORMOSOL-R 1,000 ML IV SCH ×2 (01:23→14:21)
[2022-06-05] MEDS: AMPICILLIN/SULBACTAM SOD 3,000 MG in 0.9 % SODIUM CHLORIDE 100 ML IV SCH ×2 (01:25→14:59)
[2022-06-05 09:31] LABS: BUN Creatinine Ratio 9.7 (10-20); Calcium 8.5 mg/dl (8.6-10.3); Creatinine Clr Calc Pharmacy 22.5 ml/min; Est GFR (African American) 20.3 ml/min; Est GFR (Non-African American) 17.5 ml/min; Potassium 3.4 mmol/L (3.5-5.1)
[2022-06-05] MEDS ORDERED: POTASSIUM CHLORIDE CRTAB 20 MEQ TABCR PO STA (09:34)
--- NOTE | 2022-06-05 09:36 | Urology Consultation ---
Date of Consultation June 05, 2022 Assessment & Plan (1) Hematuria: (2) UTI (urinary tract infection): Plan 56-year-old female admitted with gross hematuria, urinalysis concerning for infection and JOHANNY. I suspect her hematuria was related to a urinary tract infection. She was on outpatient antibiotics prior to presentation to the hospital and I suspect this is why her urine culture returned negative. I reviewed her CT scan which does not show any hydronephrosis or stones that would explain her JOHANNY. I suspect this is a combination of prerenal and intrinsic. Recommend 10 to 14 days of total antibiotics. Augmentin is appropriate as she was on this as an outpatient and has improved. She has a sulfa allergy and I would like to avoid ciprofloxacin based on her JOHANNY I discussed with both her and her that the plan would be outpatient hematuria work-up. If her creatinine normalizes, I would like to get a CT urogram and then perform an in office cystoscopy. If her creatinine does not improve to the point that she can safely get IV contrast, we can perform a cystoscopy with bilateral retrograde pyelograms under sedation I suspect her creatinine will likely be repeated this upcoming Thursday and I will review this lab and based on the schedule an outpatient follow-up. They were both in agreement with plan Urology to sign off History of Present Illness Reason for Consultation: Gross hematuria Attending Physician: Miah Glez MD History of Present Illness For pleasant 56-year-old female who developed gross hematuria this past weekend and right flank/abdominal pain with symptoms consistent with a urinary tract infection. She was started on Augmentin as an outpatient. She had significant nausea and vomiting and ultimately presented to the hospital and was admitted on 06/02/2022. She is noted to have an JOHANNY with a creatinine of 1.96 from baseline of 0.97. White blood cell count was 17, hemoglobin 12.5 and a urinalysis showed greater than 30 RBCs, greater than 30 WBCs, 2+ bacteria. Urine culture finalized for no growth which may be due to her receiving antibiotics prior. CT scan of the abdomen pelvis was done which I independently reviewed. This shows no nephrolithiasis or hydronephrosis. There was a 1.7 cm hemorrhagic exophytic left renal cyst. There is also 1.5 cm left renal cortical cyst. She has been on Unasyn. She previously received ceftriaxone. Her creatinine wilman all the way up to 3.11 yesterday morning and has down trended to 2.88 this morning. She still reports hematuria but thinks she is emptying appropriately. She is otherwise fairly healthy. She has not had any previous urologic issues. She has had a cyst removed on her hand and wisdom teeth removal. She has no smoking history or any family history of malignancies. Allergies Allergy/AdvReac Type Severity Reaction Status Date / Time Sulfa (Sulfonamide Allergy Unknown Verified 06/02/22 23:19 Antibiotics) Home Medications Medication Instructions Recorded Confirmed Type hydrochlorothiazide 25 mg tablet 25 mg PO DAILY PRN SBP > 130 04/23/20 06/02/22 History multivitamin 1 tab PO DAILY 06/02/22 06/02/22 History Patient History Medical History (Updated 06/02/22 @ 23:33 by Peggy Ross DO) Hypertension Surgical History (Updated 06/02/22 @ 23:19 by Peggy Ross DO) H/O wrist surgery Removal of ganglion cyst Family History Mother Breast cancer Hypertension Father Hypertension Denies family history of Ovarian cancer Prostate cancer Myocardial infarction Colorectal cancer Social History Smoking Status: Never smoker Second Hand Exposure: No; Hx Alcohol Use: No Hx Substance Use: No Preferred Language: Belgian Communication Ability: Effective Visual Impairment: No Limitations Hearing Ability: Normal [place] Required: No Beliefs That Will Affect Care: None marital status: Current Living Situation: Spouse current occupational status: employed current occupation: Self Employeed How many Children do You have: 2 How many Children do You have Comment: 1 boy 1 girl Feels Safe at Home: No Childhood Exposure to Second-Hand Smoke: Yes during the past year weight has: remained stable Dental Care, Regularly: Yes Physical Activity Frequency: 5-6 Times per Week Seatbelt Use: always Sunscreen Use: Yes Assistive Devices: None Review of Systems Review of Systems: 14 point review of systems negative outside of what is listed above in HPI Physical Exam Physical Exam: General: Alert and oriented, no acute distress HEENT: Normocephalic, mucous membranes moist Pulmonary: Nonlabored respirations Abdomen: Nondistended Extremities: Moves all 4 spontaneously Neuro: No gross deficits Skin: Warm, dry, no rashes noted Results & Data Vital Signs (Past 12 Hours) Vital Signs Temp Pulse Resp BP BP Pulse Ox O2 Del Method 06/05/22 07:44 37.1 C 86 16 155/93 H 97 Room Air 06/05/22 02:05 93 H 168/97 H 97 Room Air 06/04/22 23:31 37.3 C 97 H 18 167/94 H 98 Room Air PG Care Time/CCT Total # of Minutes Spent Total Time Spent with Patient: Total time spent is greater than 50% in coordination of care (as documented) at patient's floor/unit and/or counseling patient: Coding Level of Care Code 89366 IN/OBS CONSULT LVL 4,60M Diagnoses Hematuria R31.9 UTI (urinary tract infection) N39.0; R31.9 Hematuria presence: with hematuria Urinary tract infection type: site unspecified (2) UTI (urinary tract infection) Hematuria presence: with hematuria Urinary tract infection type: site unspecified Qualified Code(s): N39.0 - Urinary tract infection, site not specified; R31.9 - Hematuria, unspecified
[2022-06-05 09:41] LABS: Lyme Ab IgG w/WB Rflx Negative (Negative); Lyme Ab IgM w/WB Rflx Negative (Negative)
--- NOTE | 2022-06-05 11:16 | Hospitalist Progress Note ---
Date of Service June 05, 2022 Assessment & Plan (1) JOHANNY (acute kidney injury): Plan: acute kidney injury , moderate risk, no evidence of obstruction seen on imaging, risk factors of HTN use nonsteroidals possible concurrent infection, Covid infection 05/08 No prior renal issues. Patient reports poor oral intake over the last several days prior to admission. She has also been taking a modest amount of Advil. She typically takes hydrochlorothiazide for blood pressure control Renal ultrasound performed as an outpt on 06/02/22 with renal cysts, otherwise no evidence of stones or hydronephrosis. CT of the abdomen largely unremarkable as well. Suspect JOHANNY is multifactorial - pre-renal in in setting of decreased oral intake as well as presence of urinary tract infection. Use of advil possibly contributing as well. unclear if influenced by Covid infection in Februrary -Patient Repeat urine analysis shows, 3+ protein, 3+ blood, leukocyte esterase and hyaline cast. Patient has low-grade temperature. Initial urine culture was unremarkable pending urine culture from 06/04/2022. Patient is completed 3 days of ceftriaxone will change antibiotics in case we are missing something although her initial culture was negative. We will use Unasyn at this time after conversation with antimicrobial stewardship pharmacist. Lyme disease pending , tic smear is negative at this time Continue active hydration - (2) UTI (urinary tract infection): Plan: Initial urine culture was unremarkable. Repeat urine analysis is abnormal with some markers consistent with a possible urinary infection although negative nitrate negative but leukocyte esterase and blood positive. Will transition to Unasyn at this time Repeat urine cultures pending (3) Hypertension: Plan: chronic and unstable, Blood pressure elevated in the ER. Amlodipine can be used if blood pressure control control is required (4) Elevated LFTs: Plan: Code -Full per discussion with patient Admission and Anticipated Discharge Date Admission Date: June 02, 2022 Subjective pt still with improved eating well no focal abdominal pain, hematuria and dysuria improved but persistent Physical Exam Physical Exam: Alert appropriate. No peripheral edema. Cardiac exam is regular without murmurs lungs are clear abdomen NABS soft and nontender Results & Data Results & Data Vital Signs (Past 12 Hours) Vital Signs Temp Pulse Resp BP BP Pulse Ox O2 Del Method 06/05/22 07:44 98.8 F 86 16 155/93 H 97 Room Air 06/05/22 02:05 93 H 168/97 H 97 Room Air 06/04/22 23:31 99.1 F 97 H 18 167/94 H 98 Room Air Laboratory Results Reviewed CBC Reviewed PRP Reviewed tick smear Reviewed urine protein level Personally discussed with wet pour supervisor who is also her PG Care Time/CCT Total # of Minutes Spent Total Time Spent with Patient: Total time spent is greater than 50% in coordination of care (as documented) at patient's floor/unit and/or counseling patient: Coding Level of Care Code 45047 SUB INP/OBS CARE 2/35MIN Diagnoses JOHANNY (acute kidney injury) N17.9 UTI (urinary tract infection) N39.0; R31.9 Hematuria presence: with hematuria Urinary tract infection type: site unspecified Hypertension I10 Elevated LFTs R79.89 (2) UTI (urinary tract infection) Hematuria presence: with hematuria Urinary tract infection type: site unspecified Qualified Code(s): N39.0 - Urinary tract infection, site not specified; R31.9 - Hematuria, unspecified
[2022-06-05] MEDS ORDERED: METOPROLOL TARTRATE 50 MG TAB PO STA (14:45)
[2022-06-05 18:07] LABS: Total Protein Urine Random < 4.0 mg/dl (0-11.9)
[2022-06-05 18:07] LABS: BUN Creatinine Ratio 9.9 (10-20); Calcium 8.7 mg/dl (8.6-10.3); Creatinine Clr Calc Pharmacy 23.8 ml/min; Est GFR (African American) 21.8 ml/min; Est GFR (Non-African American) 18.8 ml/min; Potassium 3.6 mmol/L (3.5-5.1)
[2022-06-05 18:23] LABS: Creatinine Urine Random 26.8 mg/dl
[2022-06-06] MEDS: AMPICILLIN/SULBACTAM SOD 3,000 MG in 0.9 % SODIUM CHLORIDE 100 ML IV SCH ×2 (02:29→13:57)
[2022-06-06] MEDS: NORMOSOL-R 1,000 ML IV SCH ×2 (02:29→13:57)
[2022-06-06 07:56] LABS: Hematocrit (blood only) 34.8 % (37.0-47.0); Hemoglobin 11.4 g/dl (12.0-16.0); Mean Corpuscular Hemoglobin 27.2 pg (25.0-34.0); Mean Corpuscular Hgb Conc 32.8 g/dL (32.0-36.0); Mean Corpuscular Volume 83.1 fL (80.0-100.0); Mean Platelet Volume 10.4 fL (9.4-12.4); Platelet Count 244 K/uL (130-400); RDW Coefficient of Variation 14.2 % (11.5-14.5); RDW Standard Deviation 43.2 fL (36.4-46.3); Red Blood Count 4.19 M/uL (4.20-5.40); White Blood Count 10.28 K/ul (4.8-10.8)
[2022-06-06 08:14] LABS: BUN Creatinine Ratio 8.7 (10-20); Calcium 8.6 mg/dl (8.6-10.3); Creatinine Clr Calc Pharmacy 23.4 ml/min; Est GFR (African American) 21.4 ml/min; Est GFR (Non-African American) 18.4 ml/min; Potassium 3.8 mmol/L (3.5-5.1)
[2022-06-06 09:05] LABS: Total Protein Urine Random 188.8 mg/dl (0-11.9)
[2022-06-06 09:11] LABS: Creatinine Urine Random 30.2 mg/dl; Protein Creatinine Ratio Urine 6.3 (0-0.2)
[2022-06-06] MEDS: METOPROLOL TARTRATE 25 MG TAB PO SCH ×2 (10:09→20:33)
[2022-06-06] MEDS ORDERED: methylPREDNISolone 500 MG in DEXTROSE 5% 250 ML IV ONE (11:30)
--- NOTE | 2022-06-06 11:35 | Electrocardiogram Report ---
Test Reason : Blood Pressure : / mmHG Vent. Rate : 097 BPM Atrial Rate : 097 BPM P-R Int : 130 ms QRS Dur : 090 ms QT Int : 340 ms P-R-T Axes : -08 052 -04 degrees QTc Int : 431 ms Normal sinus rhythm Normal ECG No previous ECGs available Confirmed by Chencho Fallon ([id number]) on 06/06/2022 11:35:03 AM Referred By: REFERRED SELF Confirmed By:New Fallon
--- NOTE | 2022-06-06 15:24 | Hospitalist Progress Note ---
Date of Service June 06, 2022 Assessment & Plan (1) JOHANNY (acute kidney injury): Plan: Creatinine appears to have stabilized at 2.7. Fractional excretion of sodium is elevated at 7.2. Considering presence of hematuria, she may have IgA nephropathy or a glomerulonephritis. Parenteral steroids started today. Will discharge on oral prednisone therapy with continued follow-up. No evidence of obstruction seen on imaging. Known Covid infection 05/08. No prior renal issues. Diuretic has been discontinued. Treated with Unasyn. Urine cultures however remain negative. Renal ultrasound performed as an outpt on 06/02/22 with renal cysts, otherwise no evidence of stones or hydronephrosis. CT of the abdomen unremarkable as well. (2) UTI (urinary tract infection): Plan: Ruled out with 2 negative cultures. Unasyn discontinued (3) Hypertension: Plan: Metoprolol started for tachycardia and hypertension. Diuretics have been discontinued. Baseline EKG negative for conduction defects (4) Elevated LFTs: Plan: Mild. We will follow Plan Probable discharge to home tomorrow, June 07, on prednisone 20 mg 3 times a day to be tapered as an outpatient per response Admission and Anticipated Discharge Date Admission Date: June 02, 2022 Subjective Alert and oriented. No acute distress. Case discussed with her who is a transformation architect. We will start parenteral steroid therapy today and oral prednisone tomorrow, June 07. Fractional excretion of sodium is elevated at 7.2. Considering hematuria, she may have underlying glomerulonephritis or IgA nephropathy. Sed rate is elevated. EKG negative for conduction abnormalities. She has been started on metoprolol for blood pressure and heart rate control. Urine culture remains negative. Review of Systems Review of Systems: Constitutional-no fever or chills ENT-no blurred vision, no double vision, no epistaxis, no sore throat Respiratory-no cough, no wheezing, no shortness of breath Cardiac-no palpitations, no chest pain, no syncope GI-no nausea, vomiting, diarrhea, melena, hematochezia -no urinary retention, no urinary incontinence, no dysuria. Gross hematuria noted Musculoskeletal-no joint pain, no muscle tenderness Skin-no bruising, no rashes, no pruritus Neuro-no isolated weakness, no paresthesia, no weakness Psych-no depression, no anxiety Physical Exam Physical Exam: General-alert and oriented x3, no fevers, no chills HEENT-head atraumatic and normocephalic, pupils equal and reactive to light, extraocular muscles intact Neck-no lymphadenopathy or thyromegaly, trachea midline Chest-clear to auscultation percussion. No rales wheezing or rhonchi Cardiac-regularrhythm, borderline sinus tachycardia, normal S1 and S2 Abdomen-normal bowel sounds, nontender, no hepatosplenomegaly Extremities-no cyanosis, clubbing, or edema Neuro-cranial nerves II through XII intact, motor and sensory function within normal limits, strength symmetrical , no focal deficits Psych-normal affect, normal mood Results & Data Results & Data Vital Signs (Past 12 Hours) Vital Signs Temp Pulse Resp BP Pulse Ox O2 Del Method 06/06/22 14:46 37 C 98 H 16 178/109 H 97 Room Air 06/06/22 14:02 36.8 C 60 18 97/63 L 98 Room Air 06/06/22 07:44 37 C 92 H 18 167/105 H 98 Room Air Laboratory Results 06/06/22 07:18 06/06/22 07:18 PG Care Time/CCT Total # of Minutes Spent Total Time Spent with Patient: Total time spent is greater than 50% in coordination of care (as documented) at patient's floor/unit and/or counseling patient: Coding Level of Care Code 96199 SUB INP/OBS CARE 3/50MIN Diagnoses JOHANNY (acute kidney injury) N17.9 UTI (urinary tract infection) N39.0; R31.9 Hematuria presence: with hematuria Urinary tract infection type: site unspecified Hypertension I10 Elevated LFTs R79.89 (2) UTI (urinary tract infection) Hematuria presence: with hematuria Urinary tract infection type: site unspecified Qualified Code(s): N39.0 - Urinary tract infection, site not specif ied; R31.9 - Hematuria, unspecified
[2022-06-07] MEDS: NORMOSOL-R 1,000 ML IV SCH (02:19)
[2022-06-07 07:59] LABS: Hematocrit (blood only) 35.2 % (37.0-47.0); Hemoglobin 11.5 g/dl (12.0-16.0); Mean Corpuscular Hemoglobin 27.1 pg (25.0-34.0); Mean Corpuscular Hgb Conc 32.7 g/dL (32.0-36.0); Mean Corpuscular Volume 82.8 fL (80.0-100.0); Mean Platelet Volume 10.4 fL (9.4-12.4); Platelet Count 336 K/uL (130-400); RDW Coefficient of Variation 14.1 % (11.5-14.5); RDW Standard Deviation 42.7 fL (36.4-46.3); Red Blood Count 4.25 M/uL (4.20-5.40); White Blood Count 17.92 K/ul (4.8-10.8)
[2022-06-07] MEDS: METOPROLOL TARTRATE 25 MG TAB PO SCH (08:09)
[2022-06-07 08:24] LABS: BUN Creatinine Ratio 10.7 (10-20); Calcium 8.7 mg/dl (8.6-10.3); Creatinine Clr Calc Pharmacy 21.7 ml/min; Est GFR (African American) 19.5 ml/min; Est GFR (Non-African American) 16.8 ml/min; Potassium 3.6 mmol/L (3.5-5.1)
[2022-06-07] MEDS ORDERED: methylPREDNISolone 500 MG in DEXTROSE 5% 250 ML IV ONE (08:30)
[2022-06-07] MEDS ORDERED: METOPROLOL TARTRATE 50 MG TAB PO SCH (09:00)
--- NOTE | 2022-06-07 09:45 | Discharge Summary ---
Date of Service June 07, 2022 Admission HPI Per Admitting Provider Mrs. Escobar is a pleasant 56yo female with history of well controlled HTN presenting with two days of right flank pain and nausea. On the evening of 05/31/22 patient developed some discomfort in her right flank. She took some Advil with some relief. Shortly after she developed fever and shaking chills as well as nausea and vomiting as well as worsening pain. She continued to have flank pain, nausea and vomiting as well as decreased oral intake and dysuria. On 06/01/22 she noted some hematuria. She had a renal ultrasound performed this morning 06/02/22 which revealed no hydronephrosis or mass lesion. She did have a few renal cysts. She also had bloodwork performed which showed elevation of BUN and Cr from baseline (BUN=31 and Cr=1.85 from 18 and 0.97, respectively in 04/2020). In the ER she is afebrile, tachycardic at 111bpm and hypertensive at 175/106. Patient presently with no additional complaints. She continues to have right flank pain mostly with movement, minimal discomfort 1-04/25. Nausea improved with Zofran. Specifically denies chest pain, palpitations, cough, SOB, diarrhea. ER Course: Ceftriaxone 1gm IV Zofran 4mg IV NSS x 1L Principal Diagnosis Acute kidney injury, gross hematuria, suspected IgA nephropathy, hypertension Discharge Exam General-alert and oriented x3, no fevers, no chills HEENT-head atraumatic and normocephalic, pupils equal and reactive to light, extraocular muscles intact Neck-no lymphadenopathy or thyromegaly, trachea midline Chest-clear to auscultation percussion. No rales wheezing or rhonchi Cardiac-regularrhythm, borderline sinus tachycardia, normal S1 and S2 Abdomen-normal bowel sounds, nontender, no hepatosplenomegaly Extremities-no cyanosis, clubbing, or edema Neuro-cranial nerves II through XII intact, motor and sensory function within normal limits, strength symmetrical , no focal deficits Psych-normal affect, normal mood Discharge Data Allergies Allergy/AdvReac Type Severity Reaction Status Date / Time Sulfa (Sulfonamide Allergy Unknown Verified 06/02/22 23:19 Antibiotics) Consultations 06/02/22 22:53 ED Decision to Admit Stat 06/05/22 08:05 Consult Urology Routine Ordered Studies 06/02/22 18:00 CT abd pelvis wo con Stat Hospital Course (1) JOHANNY (acute kidney injury): Creatinine improved from admission and appears to have stabilized. Fractional excretion of sodium is elevated at 7.2. Considering presence of hematuria, she may have IgA nephropathy or a glomerulonephritis. Parenteral steroids started yesterday, 324. Will discharge on prednisone 60 mg daily in divided doses. This can be tapered off as an outpatient over time depending on her response. Hematuria has nearly resolved. No evidence of obstruction seen on imaging. Known Covid infection 05/08. No prior renal issues. Diuretic has been discontinued. Unasyn discontinued because 2 separate urine cultures are negative. Renal ultrasound performed as an outpt on 06/02/22 with renal cysts, otherwise no evidence of stones or hydronephrosis. CT of the abdomen unremarkable as well. (2) UTI (urinary tract infection): Ruled out with 2 negative cultures. Unasyn discontinued (3) Hypertension: Metoprolol started for tachycardia and hypertension. Dosage uptitrated today, June 07. Diuretics have been discontinued. Baseline EKG negative for conduction defects (4) Elevated LFTs: Mild. We will follow Plan discharge to home today, June 07, on prednisone 20 mg 3 times a day to be tapered as an outpatient per response Total Time Total Time Spent Total Time Spent (In Minutes): 40-minute Discharge Plan Discharge Items Patient Disposition: Home - Self-Care Reason For Visit: FLANK PAIN Discharge Diagnosis: Acute kidney injury, suspected IgA nephropathy, gross hematuria, essential hypertension Activity: Resume your previous activity Non-emergency contact: Primary Care Provider Call non-emergency contact if: you have any medication questions Follow-up/Referrals: ProJacques MD [Primary Care Provider] - Diet: Regular and Heart Healthy Addtl Attending Provider Instructions: Take prednisone 20 mg 3 times a day and get weekly lab testing to monitor kidney function. Eventually the prednisone will be tapered off. Take metoprolol 50 mg twice daily for blood pressure control. Pending Studies at Discharge: No Stand-Alone Forms: [employer], Smoking Cessation Medications and DC Order Prescriptions: New metoprolol tartrate 50 mg Tablet 50 mg PO BID Qty: 60 0RF prednisone 20 mg tablet 20 mg PO TID Qty: 60 0RF Continued multivitamin Tablet 1 tab PO DAILY Discontinued hydrochlorothiazide 25 mg tablet 25 mg PO DAILY PRN (Reason: SBP > 130) Discharge Orders: Discharge Order (Routine); Ordered 06/07/22 Ordered By: Ezequiel Eddy Admission Data Admit Date/Time: 06/02/22 22:51 Attending Provider: Ezequiel Eddy Admit Provider: Peggy Ross Primary Care Provider: Jacques Arce Other Providers: Peggy Ross ; Joshua Goldberg Coding Level of Care Code 30917 INP/OBS DISCH >30 MIN Diagnoses JOHANNY (acute kidney injury) N17.9 UTI (urinary tract infection) N39.0; R31.9 Hematuria presence: with hematuria Urinary tract infection type: site unspecified Hypertension I10 Elevated LFTs R79.89
[2022-06-08 20:12] LABS: Babesia microti DNA Not Detected (Not Detected)
== END 2022-06-07 11:16 | disposition home or self-care (01) | DRG 683 ==
LOC: ED 17:37 → 3W 22:51 → SUATTDRO 22:51 → 3W 06-03 00:37